=== PATIENT | female | born 1980 | race Caucasian/White ===

== ENCOUNTER 2017-12-03 13:51 | Emergency (ER) | payer MEDICAID ==
[~2017-12-03] VITALS: Ht 165.1 cm; Wt 72.1 kg
[2017-12-03 13:55] VITALS: BP 116/88
--- NOTE | 2017-12-03 14:30 | NUR ---
PATIENT PRESENTS TO ED WITH C/O LEFT FLANK PAIN W/NAUSEA,VOMITING, WEAKNESS, SINCE TUESDAY . SKIN IS PINK/WARM/DRY; AAOX4 WITH EVEN AND STEADY GAIT; LUNGS CLEAR BL; HR EVEN AND REGULAR; PT DENIES ANY FEVER, CP, SOB, OR COUGH AT THIS TIME; PATIENT STATES PAIN OF 10/10 AT THIS TIME;PATIENT POSITIONED FOR COMFORT; HOB ELEVATED; BEDRAILS UP X2; BED DOWN.ALL MONITORS IN PLACED; ER MD MADE AWARE OF PT STATUS.
--- NOTE | 2017-12-03 14:35 | NUR ---
DR LOPEZ AT BEDSIDE EVALUATING PT.
[2017-12-03] MEDS ORDERED: ONDANSETRON 4 MG ODT PO ONE (14:40)
[2017-12-03] MEDS ORDERED: KETOROLAC 60 MG/2 ML VIAL IM ONE (14:40)
[2017-12-03 15:18] VITALS: BP 116/88
--- NOTE | 2017-12-03 15:18 | NUR ---
Patient discharged with v/s stable. Written and verbal after care instructions given and explained. Patient alert, oriented and verbalized understanding of instructions. Ambulatory with steady gait. All questions addressed prior to discharge. ID band removed. Patient advised to follow up with PMD. Rx of motrin and zofran given. Patient educated on indication of medication including possible reaction and side effects. Opportunity to ask questions provided and answered.
== END 2017-12-03 15:18 | disposition home or self-care (01) ==
LOC: MED 13:51
DX: R10.12 Left upper quadrant pain (principal); R51 Headache; R11.2 Nausea with vomiting, unspecified; Z90.49 Acquired absence of other specified parts of digestive tract
CPT/HCPCS: 81002; 81025; 96372; 99283; J1885; S0119

== ENCOUNTER 2017-12-10 14:23 | Inpatient (IN) | payer MEDICAID ==
[~2017-12-10] VITALS: Ht 170.2 cm; Wt 69.6 kg
[2017-12-10 14:33] VITALS: BP 129/79
--- NOTE | 2017-12-10 14:33 | NUR ---
Pt w/c assisted to bed 3.
--- NOTE | 2017-12-10 14:36 | NUR ---
PATIENT PRESENTS TO ED WITH C.O ABD PAIN W/N/V/D X 1 WEEK . PT STATES SHE FEELS DIZZY TOO;. DENIES N/V/D; SKIN IS PINK/WARM/DRY; AAOX4 WITH EVEN AND STEADY GAIT; LUNGS CLEAR BL; HR EVEN AND REGULAR; PT DENIES ANY FEVER, CP, SOB, OR COUGH AT THIS TIME; PATIENT STATES PAIN OF 9/10 AT THIS TIME; PATIENT POSITIONED FOR COMFORT; HOB ELEVATED; BEDRAILS UP X2; BED DOWN. ER MD MADE AWARE OF PT STATUS.
--- NOTE | 2017-12-10 15:34 | NUR ---
PT VOMITTED;ER MD NOTIFIED;AWAITING NEW ORDER;
[2017-12-10] MEDS ORDERED: ONDANSETRON 4 MG/2 ML VIAL IVP ONE (15:45)
[2017-12-10] MEDS ORDERED: NACL 0.9% 1,000 ML IV ONE (15:45)
[2017-12-10 16:09] LABS: BASOPHILS # (AUTO) 0.6 K/uL (0.00-0.22); EOSINOPHILS # (AUTO) 0.1 K/uL (0-0.4); EOSINOPHILS % (AUTO) 0.4 % (0.0-4.0); HEMATOCRIT 40.1 % (36-48); HEMOGLOBIN 13.4 g/dL (12.0-16.0); LYMPHOCYTES # (AUTO) 1.2 K/uL (2.5-16.5); LYMPHOCYTES % (AUTO) 8.2 % (20.5-51.1); MEAN CORPUSCULAR HEMOGLOBIN 28 pg (27-31); MEAN CORPUSCULAR HGB CONC 33 g/dL (33-37); MEAN CORPUSCULAR VOLUME 83 fL (80-94); MONOCYTES # (AUTO) 0.4 K/uL (0.8-1.0); MONOCYTES % (AUTO) 2.7 % (1.7-9.3); NEUTROPHILS # (AUTO) 12.8 K/uL (1.8-7.7); NEUTROPHILS % (AUTO) 84.7 % (42.2-75.2); PLATELET COUNT (AUTO) 312 K/uL (140-450); RED BLOOD CELL COUNT(AUTO) 4.85 MIL/uL (4.20-5.40); RED CELL DISTRIBUTION WIDTH 12.4 % (11.6-13.7); WHITE BLOOD COUNT (AUTO) 15.1 K/uL (4.8-10.8)
[2017-12-10 16:13] LABS: APPEARANCE,URINE CLEAR (CLEAR); BILIRUBIN,URINE NEGATIVE (NEGATIVE); BLOOD, URINE NEGATIVE (NEGATIVE); COLOR,URINE YELLOW (YELLOW); LEUKOCYTE ESTERASE ,URINE NEGATIVE (NEGATIVE); NITRITE, URINE NEGATIVE (NEGATIVE); PH,URINE 7.5 (5.0-9.0); UGLUCOSE NEGATIVE (NEGATIVE)
[2017-12-10 16:21] LABS: ANION GAP 12.1 (8-16); CARBON DIOXIDE 29.2 mmol/L (21-32); CREATININE 0.7 mg/dL (0.6-1.3); POTASSIUM 4.3 mmol/L (3.5-5.1)
[2017-12-10 16:27] LABS: ALBUMIN 3.5 g/dL (3.4-5.0); TOTAL BILIRUBIN 0.2 mg/dL (0.0-1.0)
--- NOTE | 2017-12-10 16:59 | NUR ---
PT RESTING ON BED;NAD;WILL CONTINUE TO MONITOR PT,.
--- NOTE | 2017-12-10 17:43 | NUR ---
P RESTING ON BED;VERBALIZES SLIGHT RELIEF FROM DIZZINESS;WILL CONTINUE TO MONITOR PT.
[2017-12-10 19:00] LABS: BARBITURATE, URINE POS. ng/ml (NEG <=200); BENZODIAZEPINE, URINE NEG. ng/mL (NEG <=200); CANNABINOID, URINE NEG. ng/mL (NEG <=50); COCAINE, URINE NEG. ng/mL (NEG <=300); OPIATE, URINE NEG. ng/mL (NEG <=2000); PHENCYCLIDINE SCREEN,URINE NEG. ng/mL (NEG <=25)
--- NOTE | 2017-12-10 19:26 | NUR ---
Pt report given to ROMY COPPOLA. Transfer of care at this time.
--- NOTE | 2017-12-10 19:28 | NUR ---
PT RESTING IN BED, ON MONITOR Bobby any more nausea or pain. will cont to monitor.
[2017-12-10] MEDS ORDERED: FAMOTIDINE 20 MG/2 ML VIAL IVP ONE (20:35)
--- NOTE | 2017-12-10 20:47 | NUR ---
admiting resident at bedside, evaluating pt.
[2017-12-10] MEDS: NACL 0.9% 1,000 ML IV SCH (20:52)
[2017-12-10] MEDS ORDERED: HYDROcodone/APAP 5/325 MG 1 TAB TAB PO PRN (20:55)
[2017-12-10] MEDS ORDERED: ACETAMINOPHEN 325 MG TAB PO PRN (20:55)
[2017-12-10] MEDS ORDERED: ONDANSETRON 4 MG/2 ML VIAL IVP PRN (20:55)
[2017-12-10] MEDS ORDERED: OMEP20TC12 PO (21:01)
--- NOTE | 2017-12-10 21:04 | NUR ---
Shayy vallecillo in [facility] - 12/10/17 at 2145 by JANET PT TRASFERED TO TELEMETRY ROOM 124B, ACCOMPANIED BY RN AND EMT.
--- NOTE | 2017-12-10 21:14 | NUR ---
Shayy vallecillo in [facility] - 12/10/17 at 2145 by JANET REPORT GIVEN TO RMOY MARTINES AT BEDSIDE.
--- NOTE | 2017-12-10 21:24 | NUR ---
PT TRASNFERRED TO TELEMETRY, ROOM 106A, ACCOMPANIED BY RN AND EMT.
[2017-12-10 21:26] LABS: CHOL/HDL RATIO 4.8 (1-4.5)
--- NOTE | 2017-12-10 21:26 | NUR ---
REPORT GIVEN TO ROMY BLEVINS AT BEDSIDE.
[2017-12-10] MEDS ORDERED: MECLIZINE 25 MG TAB PO PRN (21:50)
[2017-12-10 21:55] LABS: FREE T4 (FREE THYROXINE) 1.05 ng/dL (0.76-1.46); THYROID STIMULATING HORMONE 0.74 uIU/mL (0.34-3.74)
--- NOTE | 2017-12-10 22:20 | NUR ---
RECEIVED PT. AWAKE AND ALERT. AMBULATED FROM OUTSIDE OF ROOM TO HER BED ASSIGNED. INDEPENDENT. ROM X 4. CLEAR SPEECH. ABLE TO SPEAK TAMAZIGHT AND UKRAINIAN. DX. OF NAUSEA AND VOMITING. STATED THAT SHE VOMITED ONLY THIS MORNING X 1 BUT BEEN LIKE THIS SINCE 3 DAYS AGO. RAPID RESPONSE USE EXPLAINED. CARE PLANS FOR THE NIGHT DISCUSSED WITH HER. ACCOMPANIED BY A FEMALE FRIEND.CALL LIGHT AT BEDSIDE AND EXPLAINED HOW TO USE IT. " I KNOW, I WAS HEAR RECENTLY." SKIN INTACT. IVF TO RAC#20 WITH NS AT 100 ML/H.
[2017-12-10 22:31] VITALS: BP 119/56
--- NOTE | 2017-12-10 22:46 | NUR ---
PT. WHEELED OUT OF UNIT FOR CT SCAN HEAD WITHOUT CONTRAST ORDERED. AWAKE AND ALERT. NO COMPLAINTS OF ANY PAIN DONE. TELEMETRY MONITORING. EKG TAKEN. NSR.
--- NOTE | 2017-12-10 23:37 | NUR ---
RESULT OF CT SCAN HEAD WITHOUT CONTRAST RELAYED TO RESIDENT MD ON DUTY LALIT. NO FURTHER ORDERS GIVEN.
[2017-12-11] VITALS: BP 110/60
--- NOTE | 2017-12-11 00:35 | NUR ---
PT. SLEEPING AT THIS TIME. NO COMPLAINTS DONE. ABLE TO VERBALIZE SIMPLE NEEDS.
--- NOTE | 2017-12-11 03:14 | NUR ---
SLEEPING WELL. NO COMPLAINTS OF VOMITING DONE OR PAIN SINCE START OF SHIFT. CALL LIGHT WITH IN REACH. TELEMETRY MONITORING.
[2017-12-11 03:44] VITALS: BP 90/52
[2017-12-11] MEDS ORDERED: AMOXIL/CLAVULANATE 500/125 MG 1 TAB PO SCH ×2 (05:35→08:00)
[2017-12-11 06:28] LABS: BASOPHILS # (AUTO) 0.2 K/uL (0.00-0.22); BASOPHILS % (AUTO) 3.8 % (0.0-2.0); EOSINOPHILS # (AUTO) 0.2 K/uL (0-0.4); EOSINOPHILS % (AUTO) 2.8 % (0.0-4.0); HEMATOCRIT 35.9 % (36-48); HEMOGLOBIN 12.1 g/dL (12.0-16.0); LYMPHOCYTES # (AUTO) 2.3 K/uL (2.5-16.5); LYMPHOCYTES % (AUTO) 34.5 % (20.5-51.1); MEAN CORPUSCULAR HEMOGLOBIN 28 pg (27-31); MEAN CORPUSCULAR HGB CONC 34 g/dL (33-37); MEAN CORPUSCULAR VOLUME 83 fL (80-94); MONOCYTES # (AUTO) 0.8 K/uL (0.8-1.0); MONOCYTES % (AUTO) 12.2 % (1.7-9.3); NEUTROPHILS # (AUTO) 3.1 K/uL (1.8-7.7); NEUTROPHILS % (AUTO) 46.7 % (42.2-75.2); PLATELET COUNT (AUTO) 289 K/uL (140-450); RED BLOOD CELL COUNT(AUTO) 4.32 MIL/uL (4.20-5.40); RED CELL DISTRIBUTION WIDTH 12.4 % (11.6-13.7); WHITE BLOOD COUNT (AUTO) 6.6 K/uL (4.8-10.8)
[2017-12-11 06:36] LABS: MAGNESIUM 2.1 mg/dL (1.8-2.4); PHOSPHORUS 3.6 mg/dL (2.5-4.9)
[2017-12-11 06:39] LABS: ANION GAP 9.7 (8-16); CARBON DIOXIDE 28.9 mmol/L (21-32); CREATININE 0.7 mg/dL (0.6-1.3); POTASSIUM 4.6 mmol/L (3.5-5.1)
[2017-12-11] MEDS: NACL 0.9% 1,000 ML IV SCH (06:39)
--- NOTE | 2017-12-11 06:40 | NUR ---
STILL SLEEPING. WAKES UP EASILY WHEN CALLED BY NAME. NO PAIN COMPLAINTS DONE THIS SHIFT. NO N/V AND VOMITING EPISODES .TELEMETRY MONITORING.
--- NOTE | 2017-12-11 07:20 | NUR ---
RECEIVED REPORT FROM THE ELECTRIC MULE DRIVER RN. PATIENT IS AAOX4. NO SINGS AND SYMPTOMS OF RESPIRATORY DISTRESS. PATIENT HAS IV ON LEFT FOREARM INFUSING NS AT 100ML. DENIES ANY NAUSEA AND VOMITING AT THIS TIME. DISCUSSED PLAN OF CARE WITH PATIENT AND SHE VERBALIZED UNDERSTANDING. BED IN LOWEST POSITION, SIDERAILS UP X2, CALL LIGHT WITHIN REACH. TELEMONITOR ON. WILL CONTINUE TO MONITOR.
[2017-12-11] MEDS ORDERED: BISACODYL 10 MG SUPP RC SCH (07:46)
[2017-12-11] MEDS ORDERED: BISACODYL 5 MG TABEC PO SCH (07:48)
[2017-12-11 08:00] VITALS: BP 102/55
[2017-12-11] MEDS: AMOXIL/CLAVULANATE 875/125 MG 1 TAB PO SCH ×3 (08:00→20:50)
[2017-12-11] MEDS: PANTOPRAZOLE 40 MG TABEC PO SCH (08:00)
--- NOTE | 2017-12-11 08:10 | NUR ---
SPOKE WITH DR. Maegan TINSLEY OVER THE PHONE AND NOTIFIED WITH THE CONSULT. STATED HE WILL COME TO SEE PT LATER TODAY. MERLIN STANTON IN CHARGE MADE AWARE.
[2017-12-11] MEDS: LACTOBACILLUS RHAMNOSUS GG 1 EACH CAP PO SCH (09:00)
[2017-12-11] MEDS: DOCUSATE 100 MG/10 ML UDC GT SCH (09:00)
[2017-12-11] MEDS: guaiFENesin 600 MG TABER PO SCH ×2 (09:00→20:50)
[2017-12-11] MEDS ORDERED: SUCRALFATE 1 GM TAB PO SCH (09:00)
[2017-12-11] MEDS: FLUTICASONE NASAL 50 MCG/ACTUATION 16 GM BTL NS SCH (09:00)
[2017-12-11 12:00] VITALS: BP 105/61
[2017-12-11 16:00] VITALS: BP 103/59
--- NOTE | 2017-12-11 16:30 | NUR ---
DR Maegan TINSLEY HERE AND SPOKE WITH PATIENT. HE EXPLAINED TO THE PATIENT THAT HE WILL DO A EGD ON HER TOMORROW. PATIENT HAS NO QUESTIONS AT THIS TIME.
--- NOTE | 2017-12-11 18:39 | NUR ---
USED THE FISCAL CLERK PHONE TO OBTAIN CONSENT FOR EGD FOR TOMORROW. ALL QUESTIONS HAVE BEEN ANSWERED.
--- NOTE | 2017-12-11 19:20 | NUR ---
ENDORSED PATIENT TO SOCIAL PSYCHOLOGIST NURSE FOR CONTINUITY OF CARE. PATIENT IN STABLE CONDITION.
--- NOTE | 2017-12-11 19:31 | NUR ---
RECEIVED REPORT FROM DAY SHIFT RN, PATIENT RESTING IN BED, AWAKE ALERT ORIENTED X4, NO S/S OF DISTRESS NOTED, RESPIRATION EVEN AND UNLABORED, IV PATENT AND INTACT, FLUSHED WITH 10ML NS. PLAN OF CARE DISCUSSED, PATIENT VERBALIZED UNDERSTANDING, CALL LIGHT WITHIN REACH, SAFETY MEASURE ENSURED, WILL CONTINUE TO MONITOR.
[2017-12-11 20:00] VITALS: BP 98/56
--- NOTE | 2017-12-11 20:52 | NUR ---
DUE MEDICATION GIVEN, PATIENT TOLERATED WELL. NO S/S OF DISTRESS NOTED, RESPIRATION EVEN AND UNLABORED, CALL LIGHT WITHIN REACH, SAFETY MEASURE ENSURED, WILL CONTINUE TO MONITOR.
[2017-12-11] MEDS ORDERED: AMITRIPTYLINE 10 MG TAB PO SCH (21:00)
--- NOTE | 2017-12-11 22:15 | NUR ---
PATIENT IS WATCHING TV, NO S/S OF DISTRESS NOTED, RESPIRATION EVEN AND UNLABORED, CALL LIGHT WITHIN REACH, SAFETY MEASURE ENSURED, WILL CONTINUE TO MONITOR.
[2017-12-12] VITALS: BP 98/57
--- NOTE | 2017-12-12 00:49 | NUR ---
VITAL SIGNS STABLE, NO S/S OF DISTRESS NOTED, RESPIRATION EVEN AND UNLABORED, CALL LIGHT WITHIN REACH, SAFETY MEASURE ENSURED, WILL CONTINUE TO MONITOR.
--- NOTE | 2017-12-12 02:20 | NUR ---
NO CHANGE IN CONDITION, PATIENT IS SLEEPING, NO S/S OF DISTRESS NOTED, RESPIRATION EVEN AND UNLABORED, CALL LIGHT WITHIN REACH, SAFETY MEASURE ENSURED, WILL CONTINUE TO MONITOR.
[2017-12-12 03:47] VITALS: BP 93/52
--- NOTE | 2017-12-12 04:22 | NUR ---
VITAL SIGNS STABLE, NO S/S OF DISTRESS NOTED, RESPIRATION EVEN AND UNLABORED, CALL LIGHT WITHIN REACH, SAFETY MEASURE ENSURED, WILL CONTINUE TO MONITOR.
[2017-12-12 06:13] LABS: BASOPHILS # (AUTO) 0.3 K/uL (0.00-0.22); BASOPHILS % (AUTO) 3.5 % (0.0-2.0); EOSINOPHILS # (AUTO) 0.2 K/uL (0-0.4); EOSINOPHILS % (AUTO) 2.9 % (0.0-4.0); HEMATOCRIT 36.4 % (36-48); LYMPHOCYTES # (AUTO) 2.1 K/uL (2.5-16.5); LYMPHOCYTES % (AUTO) 27.7 % (20.5-51.1); MEAN CORPUSCULAR HEMOGLOBIN 28 pg (27-31); MEAN CORPUSCULAR HGB CONC 33 g/dL (33-37); MEAN CORPUSCULAR VOLUME 84 fL (80-94); MONOCYTES # (AUTO) 0.9 K/uL (0.8-1.0); MONOCYTES % (AUTO) 11.6 % (1.7-9.3); NEUTROPHILS # (AUTO) 4.1 K/uL (1.8-7.7); NEUTROPHILS % (AUTO) 54.3 % (42.2-75.2); PLATELET COUNT (AUTO) 295 K/uL (140-450); RED BLOOD CELL COUNT(AUTO) 4.34 MIL/uL (4.20-5.40); RED CELL DISTRIBUTION WIDTH 12.4 % (11.6-13.7); WHITE BLOOD COUNT (AUTO) 7.6 K/uL (4.8-10.8)
[2017-12-12 06:45] LABS: ANION GAP 10.4 (8-16); CREATININE 0.7 mg/dL (0.6-1.3); POTASSIUM 4.4 mmol/L (3.5-5.1)
[2017-12-12 07:10] LABS: MAGNESIUM 2.1 mg/dL (1.8-2.4)
--- NOTE | 2017-12-12 07:35 | NUR ---
ENDORSED PLAN OF CARE TO DAY SHIFT RN, PATIENT IS IN STABLE CONDITION, NO S/S OF DISTRESS.
--- NOTE | 2017-12-12 07:40 | NUR ---
RECEIVED PATIENT REPORT AT BEDSIDE FROM NIGHT NURSE. PATIENT IS AAOX4 AND SHOWS NO S/S OF ACUTE DISTRESS ON ROOM AIR, DENIES PAIN. ON TELE MONITOR. IV NOTED ON THE LEFT AC SL. SKIN INTACT. PATIENT WAS EXPLAINED POC FOR TODAY, HOSPITAL ENVIRONMENT AND USE OF CALL LIGHT FOR ASSISTANCE, PATIENT VERBALIZED UNDERSTANDING. ALL NEEDS MET AT THIS TIME, BED IN LOW POSITION WITH CALL LIGHT WITHIN REACH.
[2017-12-12] MEDS: PANTOPRAZOLE 40 MG TABEC PO SCH ×2 (07:51→08:39)
[2017-12-12 08:08] VITALS: BP 99/50
[2017-12-12] MEDS: AMOXIL/CLAVULANATE 875/125 MG 1 TAB PO SCH (08:37)
[2017-12-12] MEDS: SENNA 8.6 MG TAB PO SCH ×2 (08:38→14:23)
[2017-12-12] MEDS: LACTOBACILLUS RHAMNOSUS GG 1 EACH CAP PO SCH (08:38)
[2017-12-12] MEDS: DOCUSATE 100 MG/10 ML UDC GT SCH (08:38)
[2017-12-12] MEDS: guaiFENesin 600 MG TABER PO SCH (08:39)
[2017-12-12] MEDS: FLUTICASONE NASAL 50 MCG/ACTUATION 16 GM BTL NS SCH (08:40)
--- NOTE | 2017-12-12 08:42 | NUR ---
ADMINISTERED SCHEDULED MEDICATIONS. PATIENT SWALLOWED WITH NO DIFFICULTY, ALL NEEDS MET AT THIS TIME. BED IN LOW POSITION WITH CALL LIGHT WITHIN REACH.
--- NOTE | 2017-12-12 08:55 | NUR ---
PATIENT HAS BEEN SCREENED AND CATEGORIZED MODERATE NUTRITION RISK. PATIENT WILL BE SEEN WITHIN 3-5 DAYS OF ADMISSION. 12/12/17-12/14/[address]
--- NOTE | 2017-12-12 09:46 | NUR ---
CM NOTE PER JAE OF [facility] DEPT PH# [phone], NO ASSIGNED CORDAGE SALES REPRESENTATIVE YET BECAUSE THEY'RE STILL UPDATING THEIR SYSTEM BUT TO SEND REVIEWS TO DEPT [phone]. INITIAL REVIEW FAXED TO [facility] [phone] PH# [phone] AND TO [facility] [phone] PH# [phone].
[2017-12-12] MEDS ORDERED: fentaNYL 0.05 MG/ML VIAL ONE (10:11)
[2017-12-12] MEDS ORDERED: MIDAZOLAM 2 MG/2 ML VIAL ONE ×2 (10:11)
[2017-12-12] MEDS ORDERED: diphenhydrAMINE 50 MG/ML VIAL ONE (10:11)
--- NOTE | 2017-12-12 10:42 | NUR ---
PATIENT LEFT TO OR FOR PROCEDURE IN STABLE CONDITION.
[2017-12-12] MEDS: MIDAZOLAM 2 MG/2 ML VIAL IVP ONE ×2 (11:09→11:59)
[2017-12-12] MEDS: fentaNYL 0.05 MG/ML VIAL IVP ONE ×2 (11:10→11:59)
--- NOTE | 2017-12-12 11:40 | NUR ---
PATIENT BACK ON UNIT, PATIENT IN STABLE CONDITION.
[2017-12-12 12:00] VITALS: BP 99/53
--- NOTE | 2017-12-12 12:15 | NUR ---
PATIENT REQUESTED TO HAVE LUNCH BEFORE SCHEDULED MEDICATIONS, [facility] WAS CALLED AND LEFT MESSAGE TO BRING UP LATE LUNCH, DR CLEMENTE NOTIFIED TO CHANGE DIET FOR LUNCH TIME.
--- NOTE | 2017-12-12 13:45 | NUR ---
PATIENT STILL HAS NOT HAD LUNCH, [facility] CALLED AGAIN TO BRING UP LATE LUNCH, ORDERED TURKEY SANDWICH. PATIENT REQUESTED TO HAVE SCHEDULED MEDICATIONS WITH LUNCH.
--- NOTE | 2017-12-12 14:25 | NUR ---
ADMINISTERED SCHEDULED MEDICATIONS. PATIENT SWALLOWED WITH NO DIFFICULTY, ALL NEEDS MET AT THIS TIME. BED IN LOW POSITION WITH CALL LIGHT WITHIN REACH.
[2017-12-12] MEDS ORDERED: OMEP20TC12 PO (15:10)
--- NOTE | 2017-12-12 15:11 | NUR ---
DR LEPE NOTIFIED OF PATIENT TOLERATING DIET WELL, PATIENT DENIES N/V. ALL NEEDS MET AT THIS TIME.
[2017-12-12] MEDS ORDERED: LACT1.4C PO ×2 (15:12→15:27)
[2017-12-12] MEDS ORDERED: RANI150C PO (15:25)
[2017-12-12] MEDS ORDERED: AMOX1TAB8 PO (15:27)
--- NOTE | 2017-12-12 15:28 | NUR ---
CM NOTE CALLED [facility]# [phone] TO FOLLOW UP ON WHO THE CONVEYOR SYSTEM DISPATCHER ASSIGNED TO THE PATIENT IS. PER RYLEE OF [facility], PATIENT'S NAME DOESN'T SHOW UP IN THEIR SYSTEM YET SO THEY HAVE NOT ASSIGNED ANY CONVEYOR SYSTEM DISPATCHER AT THIS TIME AND THAT IT TAKES ABOUT 24 HOURS FOR THEIR SYSTEM BE UPDATED.
[2017-12-12 15:54] VITALS: BP 107/64
[2017-12-12] MEDS ORDERED: ATOR20TA PO (16:26)
[2017-12-12] MEDS ORDERED: DOCU-299 PO (16:49)
--- NOTE | 2017-12-12 17:00 | NUR ---
PATIENT HAS BEEN DISCHARGED, ALL DISCHARGE INSTRUCTIONS GIVEN, ALL PAPERWORK SIGNED, ALL QUESTIONS ANSWERED, PATIENT VERBALIZED UNDERSTANDING. ALL BELONGINGS IN PATIENT'S POSSESSION. IV DISCONTINUED WITH CANNULA INTACT. WRISTBANDS AND TELE BOX REMOVED. PATIENT PREFERRED TO AMB OFF UNIT WITH FRIEND. PATIENT AMB WITH STEADY GAIT, PATIENT LEFT UNIT IN STABLE CONDITION.
== END 2017-12-12 17:00 | disposition home or self-care (01) | DRG 241 ==
LOC: MED 14:23 → MTU 20:59
PROVIDERS: ADMIT Student in an Organized Health Care Education/Training Program; ATTEND Student in an Organized Health Care Education/Training Program
PROC: 0DB68ZX Excision of Stomach, Via Natural or Artificial Opening Endoscopic, Diagnostic (ICD-10-PCS; principal; 2017-12-10)
DX: K29.70 Gastritis, unspecified, without bleeding (principal); G90.9 Disorder of the autonomic nervous system, unspecified; K76.0 Fatty (change of) liver, not elsewhere classified; E86.0 Dehydration; K59.09 Other constipation; K58.1 Irritable bowel syndrome with constipation; E78.5 Hyperlipidemia, unspecified; F41.9 Anxiety disorder, unspecified; Z90.49 Acquired absence of other specified parts of digestive tract; D72.829 Elevated white blood cell count, unspecified; R16.0 Hepatomegaly, not elsewhere classified; K21.9 Gastro-esophageal reflux disease without esophagitis; M79.7 Fibromyalgia; J01.40 Acute pansinusitis, unspecified
CPT/HCPCS: 36415; 70450; 71045; 80048; 80053; 80305; 81003; 81025; 82150; 83036; 83690; 83735; 83880; 84100; 84439; 84443; 84479; 84484; 84702; 85025; 85610; 85730; 86677; 87081; 93005; 93880; 96361; 96374; 96375; 99285; J1200; J2250; J2405; J3010; J3490; J7030; Q0092

== ENCOUNTER 2019-07-01 14:16 | Emergency (ER) | payer MEDICAID ==
[~2019-07-01] VITALS: Ht 167.6 cm; Wt 70.8 kg
[~2019-07-01 14:16] MED LIST: AMOX1TAB8 PO; ATOR20TA PO; DOCU-299 PO; LACT1.4C PO; RANI150C PO
[2019-07-01 14:20] VITALS: BP 116/66
--- NOTE | 2019-07-01 14:20 | NUR ---
PT TAKEN TO BED 11 AND TRIAGED AT BEDSIDE.
--- NOTE | 2019-07-01 14:33 | NUR ---
Patient being evaluated by physician at bedside.
--- NOTE | 2019-07-01 14:33 | NUR ---
BIB C/O DIZZINESS AND NAUSEA X1 WEEK AND PRODUCTIVE COUGH WITH GREENISH PHLEGM AND FRONTAL SINSUS TENDERNESS FOR 2 WEEKS. CURRENTLY TAKING DOXYCYCLINE. DENIES VOMITING, DIARRHEA, FEVER, CHEST PAIN, SOB, OR CONSTIPATION. PATIENT STATES PAIN OF 8/10 AT THIS TIME; VSS; PATIENT POSITIONED FOR COMFORT; HOB ELEVATED; BEDRAILS UP X1; BED DOWN. ER MD MADE AWARE OF PT STATUS.
[2019-07-01] MEDS ORDERED: DOXY100C9 PO (14:38)
[2019-07-01] MEDS ORDERED: NACL 0.9% 1,000 ML IV ONE (14:40)
[2019-07-01] MEDS ORDERED: MECLIZINE 25 MG TAB PO ONE (14:40)
[2019-07-01] MEDS ORDERED: KETOROLAC 30 MG/ML VIAL IVP ONE (14:40)
--- NOTE | 2019-07-01 14:50 | NUR ---
BLOOD SAMPLES OBTAINED AND WALKED TO THE LAB.
[2019-07-01 15:03] LABS: BASOPHILS % (AUTO) 0.4 % (0.0-2.0); EOSINOPHILS # (AUTO) 0.1 K/uL (0-0.4); EOSINOPHILS % (AUTO) 1.8 % (0.0-4.0); HEMATOCRIT 40.9 % (36-48); HEMOGLOBIN 13.5 g/dL (12.0-16.0); LYMPHOCYTES # (AUTO) 1.2 K/uL (2.5-16.5); MEAN CORPUSCULAR HEMOGLOBIN 29 pg (27-31); MEAN CORPUSCULAR HGB CONC 33 g/dL (33-37); MEAN CORPUSCULAR VOLUME 86.6 fL (80-94); MONOCYTES # (AUTO) 0.5 K/uL (0.8-1.0); MONOCYTES % (AUTO) 6.8 % (1.7-9.3); NEUTROPHILS # (AUTO) 5.8 K/uL (1.8-7.7); PLATELET COUNT (AUTO) 262 K/uL (140-450); RED BLOOD CELL COUNT(AUTO) 4.72 MIL/uL (4.20-5.40); RED CELL DISTRIBUTION WIDTH 13.1 % (11.6-13.7); WHITE BLOOD COUNT (AUTO) 7.8 K/uL (4.8-10.8)
[2019-07-01 15:22] LABS: ANION GAP 12.5 (8-16); CARBON DIOXIDE 25.1 mmol/L (21-32); CREATININE 0.7 mg/dL (0.6-1.3); POTASSIUM 3.6 mmol/L (3.5-5.1)
[2019-07-01 15:51] LABS: ALBUMIN 3.4 g/dL (3.4-5.0)
[2019-07-01 15:52] LABS: TOTAL BILIRUBIN 0.3 mg/dL (0.0-1.0)
[2019-07-01] MEDS ORDERED: PANTOPRAZOLE 40 MG INJ VIAL IVP ONE (15:55)
--- NOTE | 2019-07-01 16:03 | NUR ---
PT IS RESTING IN BED. VSS. IS AT BEDSIDE.
[2019-07-01 16:38] VITALS: BP 110/57
--- NOTE | 2019-07-01 16:38 | NUR ---
Patient discharged with v/s stable. Written and verbal after care instructions given and explained. Patient alert, oriented and verbalized understanding of instructions. Ambulatory with steady gait. All questions addressed prior to discharge. ID band removed. Patient advised to follow up with PMD. Rx of Meclizine Hydrochloride, Flonase, Prednisone, and Motrin given. Patient educated on indication of medication including possible reaction and side effects. Opportunity to ask questions provided and answered.
== END 2019-07-01 16:38 | disposition home or self-care (01) ==
LOC: MED 14:16
DX: R42 Dizziness and giddiness (principal); J30.9 Allergic rhinitis, unspecified; R11.0 Nausea; R05 Cough; Z79.899 Other long term (current) drug therapy
CPT/HCPCS: 36415; 71045; 80053; 81002; 81025; 85025; 96361; 96374; 99284; J1885; J7030; J8597; Q0092; C9113

== ENCOUNTER 2019-12-23 18:18 | Inpatient (IN) | payer MEDICAID ==
[~2019-12-23] VITALS: Ht 165.1 cm; Wt 68.5 kg
[~2019-12-23 18:18] MED LIST changes: -AMOX1TAB8 PO; -ATOR20TA PO; +DESFLURANE 240 ML BTL INH ONE; -DOCU-299 PO; +DOXY100C9 PO; +KETOROLAC 30 MG/ML VIAL ONE; -LACT1.4C PO; +PROPOFOL 200 MG/20 ML VIAL IV ONE; -RANI150C PO; +ROCURONIUM 50 MG/5 ML VIAL IV ONE; +SUCCINYLCHOLINE CHLORIDE 200 MG/10 ML VIAL IVP ONE
--- NOTE | 2019-12-23 18:26 | NUR ---
PATIENT WHEELCHAIR ASSISTED TO BED 9.
[2019-12-23 18:30] VITALS: BP 119/70
--- NOTE | 2019-12-23 18:43 | NUR ---
COVERING PRIMARY RN FOR LUNCH RELIEF --- RECEVIED A 39/F FROM TRIAGE WITH HEAVY VAGINAL BLEEDING. PT REPORTS THAT SHE WAS TAKING MISOPROSTOL AND BEGAN HEAVILY BLEEDING. BLEEDING APPEARS TO BE CONTROLLED AT THIS TIME. PT IS HEMODYNAMICALLY STABLE AT THIS TIME. IN BED FOR MSE.
[2019-12-23 19:06] LABS: BASOPHILS # (AUTO) 0.1 K/uL (0.00-0.22); BASOPHILS % (AUTO) 1.1 % (0.0-2.0); EOSINOPHILS # (AUTO) 0.3 K/uL (0-0.4); EOSINOPHILS % (AUTO) 2.5 % (0.0-4.0); HEMATOCRIT 37.9 % (36-48); HEMOGLOBIN 12.7 g/dL (12.0-16.0); LYMPHOCYTES # (AUTO) 2.9 K/uL (2.5-16.5); MEAN CORPUSCULAR HEMOGLOBIN 29 pg (27-31); MEAN CORPUSCULAR HGB CONC 34 g/dL (33-37); MEAN CORPUSCULAR VOLUME 85.8 fL (80-94); MONOCYTES % (AUTO) 9.2 % (1.7-9.3); NEUTROPHILS # (AUTO) 6.9 K/uL (1.8-7.7); NEUTROPHILS % (AUTO) 61.2 % (42.2-75.2); PLATELET COUNT (AUTO) 292 K/uL (140-450); RED BLOOD CELL COUNT(AUTO) 4.42 MIL/uL (4.20-5.40); WHITE BLOOD COUNT (AUTO) 11.3 K/uL (4.8-10.8)
--- NOTE | 2019-12-23 19:09 | NUR ---
REPORT TO ROMY AMADOR.
[2019-12-23 19:25] LABS: ANION GAP 12.7 (8-16); CARBON DIOXIDE 25.8 mmol/L (21-32); CREATININE 0.7 mg/dL (0.6-1.3); POTASSIUM 3.5 mmol/L (3.5-5.1)
[2019-12-23 19:30] LABS: ALBUMIN 3.3 g/dL (3.4-5.0); TOTAL BILIRUBIN 0.2 mg/dL (0.0-1.0)
[2019-12-23] MEDS ORDERED: NACL 0.9% 1,000 ML IV ONE ×3 (20:45→22:15)
--- NOTE | 2019-12-23 20:46 | NUR ---
NOTIFIED ERMD REGARDING DROP IN BLOOD PRESSURE: 91/47. VERBAL ORDERS OF 1 LITER BOLUS GIVEN.
[2019-12-23 20:56] LABS: APPEARANCE,URINE CLOUDY (CLEAR); BILIRUBIN,URINE NEGATIVE (NEGATIVE); BLOOD, URINE 3+ (NEGATIVE); COLOR,URINE RED (YELLOW); LEUKOCYTE ESTERASE ,URINE TRACE (NEGATIVE); NITRITE, URINE POSITIVE (NEGATIVE); UGLUCOSE NEGATIVE (NEGATIVE)
[2019-12-23] MEDS ORDERED: NACL 0.9% 2,000 ML IV ONE (21:15)
[2019-12-23 21:18] LABS: RBC,URINE TOO NUMEROUS TO COUN /HPF (0-5)
--- NOTE | 2019-12-23 21:18 | NUR ---
Dr. Duncan examining patient.
--- NOTE | 2019-12-23 21:20 | NUR ---
ANA PERFORMING D&C AT BEDSIDE
--- NOTE | 2019-12-23 21:25 | NUR ---
REPORT OF PT STATUS GIVEN TO MD PEREZ.
[2019-12-23 21:39] LABS: HEMATOCRIT 28.5 % (36-48); HEMOGLOBIN 9.5 g/dL (12.0-16.0)
--- NOTE | 2019-12-23 21:41 | NUR ---
INCREASE IN BP, REFER TO VITAL SIGNS
[2019-12-23] MEDS ORDERED: ONDANSETRON 4 MG/2 ML VIAL IM/IVP PRN ×2 (21:45→22:15)
[2019-12-23] MEDS ORDERED: MORPHINE SULFATE 2 MG/ML SYR IVP PRN ×2 (21:45→22:15)
[2019-12-23] MEDS ORDERED: DOCUSATE SODIUM 100 MG GELCAP PO PRN ×2 (21:45→22:15)
[2019-12-23] MEDS ORDERED: NACL 0.9% 1,000 ML IV SCH (21:45)
[2019-12-23] MEDS ORDERED: ACETAMINOPHEN 325 MG TAB PO PRN ×2 (21:45→22:15)
[2019-12-23] MEDS ORDERED: HYDROcodone/APAP 5/325 MG 1 TAB TAB PO PRN ×2 (21:45→22:15)
--- NOTE | 2019-12-23 22:00 | NUR ---
CONSENT FOR D&C SURGERY/ BLOOD TRANSFUSION SIGNED AT BEDSIDE. RESP EVEN AND UNLABORED. VSS. DR PEREZ AT BEDSIDE.
[2019-12-23] MEDS ORDERED: MIDAZOLAM 2 MG/2 ML VIAL ONE (22:01)
[2019-12-23] MEDS ORDERED: fentaNYL 0.05 MG/ML VIAL ONE (22:01)
--- NOTE | 2019-12-23 22:25 | NUR ---
Patient will be admitted to [facility]. Admited to TELE. Will go to room 105A. Belongings list completed.
[2019-12-23] MEDS ORDERED: HYDROmorphone 1 MG/ML AMP IVP PRN (22:50)
[2019-12-23] MEDS ORDERED: ONDANSETRON 4 MG/2 ML VIAL IVP PRN (22:50)
[2019-12-23 23:17] LABS: MAGNESIUM 1.9 mg/dL (1.8-2.4); PHOSPHORUS 4.7 mg/dL (2.5-4.9); THYROID STIMULATING HORMONE 0.91 uIU/mL (0.34-3.74)
[2019-12-23 23:18] LABS: PROTHROMBIN TIME 9.9 secs (10.8-13.4)
[2019-12-23 23:27] LABS: BARBITURATE, URINE NEG. ng/ml (NEG <=200); BENZODIAZEPINE, URINE NEG. ng/mL (NEG <=200); CANNABINOID, URINE NEG. ng/mL (NEG <=50); COCAINE, URINE NEG. ng/mL (NEG <=300); OPIATE, URINE NEG. ng/mL (NEG <=2000); PHENCYCLIDINE SCREEN,URINE NEG. ng/mL (NEG <=25)
--- NOTE | 2019-12-23 23:53 | NUR ---
ADMITTED 39 Y/O FEMALE FROM [facility]IA [facility]. S/P D & C. PATIENT IS SLEEPING. EASILY AROUSABLE TO VERBAL. DENIES PAIN. ABLE TO MAKE NEEDS KNOWN. WITH ON GOING IV FLUID TO LAC 18G. NO BLEEDING NOTED. RESPIRATION EVEN AND UNLABORED. NO SOB NOTED. NOTED IV HEPLOCK ON RAC 20G. SIGNIFICANT OTHER AT BEDSIDE AND PROVIDED INFORMATION. PLAN OF CARE WAS DISCUSSED. MRSA SCREEN DONE. VITAL SIGNS TAKEN AND RECORDED. ORIENTATION TO ROOM, STAFF AND CALL LIGHT. BED IS AT LOW POSITION. CALL LIGHT WITHIN REACH. WILL CONTINUE TO MONITOR.
[2019-12-24 00:16] VITALS: BP 91/39
--- NOTE | 2019-12-24 00:30 | NUR ---
PATIENT AGREED TO HAVE A BLOOD TRANSFUSION AND LET THE SIGNIFICANT OTHER SIGNED THE CONSENT.
[2019-12-24] MEDS: NACL 0.9% 1,000 ML IV SCH ×2 (00:56→08:15)
--- NOTE | 2019-12-24 02:16 | NUR ---
PATIENT IS SLEEPING. NOT IN ANY ACUTE DISTRESS. RESPIRATION EVEN AND UNLABORED. NO BLEEDING NOTED. WILL CONTINUE TO MONITOR.
[2019-12-24] MEDS ORDERED: PANTOPRAZOLE 40 MG TABEC PO SCH (03:00)
--- NOTE | 2019-12-24 03:05 | NUR ---
PATIENT VOMITED X1. SMALL AMOUNT. NO SOB NOTED. ADVISED TO MOVE SLOWLY. PRN ZOFRAN IVP GIVEN PER MD ORDER. WILL CONTINUE TO MONITOR. PATIENT C/O ABDOMINAL PAIN 07/10. SMALL AMOUNT OF BLEEDING NOTED ON HER PAD. REPOSITIONED. MORPHINE IVP GIVEN PER MD ORDER.
[2019-12-24 03:25] LABS: BASOPHILS # (AUTO) 0.1 K/uL (0.00-0.22); BASOPHILS % (AUTO) 1.2 % (0.0-2.0); EOSINOPHILS # (AUTO) 0.2 K/uL (0-0.4); EOSINOPHILS % (AUTO) 2.7 % (0.0-4.0); HEMATOCRIT 23.4 % (36-48); HEMOGLOBIN 8.1 g/dL (12.0-16.0); LYMPHOCYTES # (AUTO) 1.8 K/uL (2.5-16.5); LYMPHOCYTES % (AUTO) 24.9 % (20.5-51.1); MEAN CORPUSCULAR HEMOGLOBIN 29 pg (27-31); MEAN CORPUSCULAR HGB CONC 35 g/dL (33-37); MEAN CORPUSCULAR VOLUME 85.1 fL (80-94); MONOCYTES # (AUTO) 0.7 K/uL (0.8-1.0); MONOCYTES % (AUTO) 9.6 % (1.7-9.3); NEUTROPHILS # (AUTO) 4.5 K/uL (1.8-7.7); NEUTROPHILS % (AUTO) 61.6 % (42.2-75.2); PLATELET COUNT (AUTO) 189 K/uL (140-450); RED BLOOD CELL COUNT(AUTO) 2.75 MIL/uL (4.20-5.40); RED CELL DISTRIBUTION WIDTH 13.6 % (11.6-13.7); WHITE BLOOD COUNT (AUTO) 7.4 K/uL (4.8-10.8)
[2019-12-24 04:00] VITALS: BP 93/45
--- NOTE | 2019-12-24 04:12 | NUR ---
PATIENT STATES "I FEEL UNEASINESS ON MY STOMACH". PER PATIENT SHE SAID SHE USUALLY TAKES OMEPRAZOLE AT HOME. NOTIFIED MD. AND ORDERED PANTOPRAZOLE. NO SOB NOTED. NO C/O PAIN/DISCOMFORT. WILL CONTINUE TO MONITOR.
--- NOTE | 2019-12-24 06:02 | NUR ---
AWAITING FOR BLOOD.
--- NOTE | 2019-12-24 06:07 | NUR ---
PATIENT WENT TO THE BATHROOM. NOTED MINIMAL AMOUNT OF BLOOD TO HER PADS.
--- NOTE | 2019-12-24 06:30 | NUR ---
VITAL SIGNS TAKEN BEFORE TRANSFUSION 98.5, 82/36, 99%, 68, 17. NO SOB NOTED. MD WAS NOTIFIED. ORDERED TO GO AHEAD AND TRANSFUSE BLOOD.
[2019-12-24 06:31] LABS: ANION GAP 11.5 (8-16); CARBON DIOXIDE 24.4 mmol/L (21-32); CREATININE 0.5 mg/dL (0.6-1.3); POTASSIUM 3.9 mmol/L (3.5-5.1)
[2019-12-24] MEDS ORDERED: NACL 0.9% 1,000 ML IV ONE (06:35)
--- NOTE | 2019-12-24 06:45 | NUR ---
STARTED BLOOD TRANSFUSION. CHECKED BLOOD BY 2 RN. STAYED WITH THE PATIENT FOR 15 MINS AT THE START OF THE INFUSION. NO ADVERSE REACTION NOTED. PATIENT DIDN'T C/O ANYTHING.
--- NOTE | 2019-12-24 07:30 | NUR ---
ENDORSEMENT GIVEN AT BEDSIDE TO AM SHIFT RN FOR CONTINUITY OF CARE. PATIENT IS AWAKE. NO SOB NOTED.
--- NOTE | 2019-12-24 07:31 | NUR ---
RECEIVED BEDSIDE REPORT FROM NIGHTSHIFT NURSE. NO SIGNS OF DISTRESS NOTED. PT AWAKE RESTING IN BED. PLAN OF CARE REVIEWED WITH PATIENT. TELE MONITOR ATTACHED SAFETY MEASURES IN PLACE.
[2019-12-24 07:50] LABS: MAGNESIUM 1.7 mg/dL (1.8-2.4); PHOSPHORUS 3.9 mg/dL (2.5-4.9)
[2019-12-24 08:00] VITALS: BP 101/49
--- NOTE | 2019-12-24 08:33 | NUR ---
PATIENT HAS BEEN SCREENED AND CATEGORIZED LOW NUTRITION RISK. PATIENT WILL BE SEEN WITHIN 7 DAYS OF ADMISSION. 12/30/[address]
[2019-12-24] MEDS ORDERED: LACTOBACILLUS RHAMNOSUS GG 1 EACH CAP PO SCH ×2 (09:00)
--- NOTE | 2019-12-24 10:05 | NUR ---
1 UNIT PRBC COMPLETED, NO REACTION NOTED. WILL ADMINISTER NEXT UNIT PER MD ORDERS. WILL CONTINUE TO MONITOR .
--- NOTE | 2019-12-24 10:52 | NUR ---
DISCHARGE PLANNING: THIS IS A 39 Y/O FEMALE PATIENT FROM HOME, WHO CAME IN DUE TO VAGINAL BLEEDING. NO PAST MEDICAL HISTORY. INITIAL DIAGNOSIS OF INCOMPLETE , RETAINED PRODUCTS OF CONCEPTION. CURRENT LABS INCLUDE WBC 7.4, H/H 8.1/23.4, NA/K 143/3.9, BUN/CREA 9/0.5 AND MAG 1.7. URINE CULTURE AND MRSA NARES PENDING. OB GYNE CONSULT WITH DR. PEREZ IN PLACE. ON ROCEPHIN. 2 U PRBC ORDERED. 1 UNIT GIVEN. DC PLAN BACK TO HOME ONCE STABLE.
[2019-12-24 12:00] VITALS: BP 119/49
[2019-12-24 12:06] LABS: BASOPHILS % (AUTO) 0.5 % (0.0-2.0); EOSINOPHILS # (AUTO) 0.2 K/uL (0-0.4); HEMATOCRIT 27.1 % (36-48); HEMOGLOBIN 9.3 g/dL (12.0-16.0); LYMPHOCYTES # (AUTO) 1.8 K/uL (2.5-16.5); LYMPHOCYTES % (AUTO) 23.7 % (20.5-51.1); MEAN CORPUSCULAR HEMOGLOBIN 30 pg (27-31); MEAN CORPUSCULAR HGB CONC 35 g/dL (33-37); MEAN CORPUSCULAR VOLUME 86.1 fL (80-94); MONOCYTES # (AUTO) 0.7 K/uL (0.8-1.0); NEUTROPHILS # (AUTO) 4.9 K/uL (1.8-7.7); NEUTROPHILS % (AUTO) 64.8 % (42.2-75.2); PLATELET COUNT (AUTO) 194 K/uL (140-450); RED BLOOD CELL COUNT(AUTO) 3.15 MIL/uL (4.20-5.40); RED CELL DISTRIBUTION WIDTH 13.4 % (11.6-13.7); WHITE BLOOD COUNT (AUTO) 7.5 K/uL (4.8-10.8)
--- NOTE | 2019-12-24 12:30 | NUR ---
DR. NAPOLES AT BEDSIDE REVIEWING PLAN OF CARE WITH PATIENT. WILL CONTINUE TO MONITOR.
--- NOTE | 2019-12-24 15:44 | NUR ---
DISCHARGE INSTRUCTIONS PROVIDED TO PATIENT IN PREFERRED LANGUAGE OF BERMUDIAN, PATIENT PREFERRED TO TRANSLATE INSTEAD OF USING TRANSLATION PHONE. INSTRUCTIONS ON FOLLOW-UP WITH DR. PEREZ S/P DNC AND MANAGEMENT. PATIENT/FAMILY VERBALIZED COMPLETE UNDERSTANDING. IV SITE REMOVED WITH MINIMAL BLOOD AND LUMEN COMPLETELY INTACT. ID BANDS REMOVED. PATIENT TO GET DRESSED AND THEN READY TO BE DISCHARGED HOME VIA PRIVATE VEHICLE. WILL CONTINUE TO MONITOR.
--- NOTE | 2019-12-24 15:55 | NUR ---
PATIENT ALL DRESSED. ESCORTED PATIENT DOWN TO LOBBY VIA STEADY AMBULATION. PATIENT DISCHARGED AT THIS TIME IN STABLE CONDITION.
== END 2019-12-24 15:55 | disposition home or self-care (01) | DRG 544 ==
LOC: MED 18:18 → MTU 21:54 → MED 22:07 → MMU 12-24 00:17
PROVIDERS: ADMIT General Practice; ATTEND General Practice
PROC: 10D17ZZ Extraction of Products of Conception, Retained, Via Natural or Artificial Opening (ICD-10-PCS; principal; 2019-12-23 21:45)
PROC: 30233N1 Transfusion of Nonautologous Red Blood Cells into Peripheral Vein, Percutaneous Approach (ICD-10-PCS; 2019-12-24)
DX: O03.1 Delayed or excessive hemorrhage following incomplete spontaneous abortion (principal); I95.9 Hypotension, unspecified; D62 Acute posthemorrhagic anemia; E44.1 Mild protein-calorie malnutrition; E86.0 Dehydration; O03.38 Urinary tract infection following incomplete spontaneous abortion; Z90.49 Acquired absence of other specified parts of digestive tract
CPT/HCPCS: 36415; 71045; 76815; 80048; 80053; 80305; 81001; 83036; 83735; 83880; 84100; 84443; 84702; 85018; 85025; 85610; 85730; 86886; 86900; 86901; 86920; 87081; 87086; 96360; 99291; J0330; J0696; J1885; J2250; J2270; J2405; J2704; J3010; J3490; J7030; J7060; P9016; Q0092

== ENCOUNTER 2020-07-04 16:15 | Emergency (ER) | payer MEDICAID ==
[~2020-07-04] VITALS: Ht 163.8 cm; Wt 78.5 kg
[2020-07-04 16:27] VITALS: BP 110/60
--- NOTE | 2020-07-04 16:31 | NUR ---
Patient ambulated to bed 8. RN evaluating the patient at bedside.
--- NOTE | 2020-07-04 16:47 | NUR ---
ABRAM Marie is evaluating the patient at bedside.
[2020-07-04] MEDS ORDERED: DOPPLER MC ONE (16:50)
--- NOTE | 2020-07-04 16:56 | NUR ---
39 YEAR OLD FEMALE COMPLAINS OF DIZZINESS, CRAMPING, AND NAUSEA IN THE MORNING. PT STATES SHE IS 15 WEEKS , HEART RATE 178 BY DOPPLER. PT AOX4, BREATHING EVEN AND UNLABORED, SKIN WARM AND DRY. BED IN LOWEST POSITION, LOCKED, BED RAIL UPX1. PA MICHAEL AT BEDSIDE. PMH - DENIES ALLERGIES - NKA
[2020-07-04 17:11] LABS: BASOPHILS # (AUTO) 0.1 K/uL (0.00-0.22); BASOPHILS % (AUTO) 0.9 % (0.0-2.0); EOSINOPHILS # (AUTO) 0.1 K/uL (0-0.4); EOSINOPHILS % (AUTO) 1.4 % (0.0-4.0); HEMATOCRIT 38.6 % (36-48); HEMOGLOBIN 12.7 g/dL (12.0-16.0); LYMPHOCYTES # (AUTO) 1.6 K/uL (2.5-16.5); LYMPHOCYTES % (AUTO) 17.9 % (20.5-51.1); MEAN CORPUSCULAR HEMOGLOBIN 29 pg (27-31); MEAN CORPUSCULAR HGB CONC 33 g/dL (33-37); MEAN CORPUSCULAR VOLUME 87.8 fL (80-94); MONOCYTES # (AUTO) 0.8 K/uL (0.8-1.0); NEUTROPHILS # (AUTO) 6.2 K/uL (1.8-7.7); NEUTROPHILS % (AUTO) 70.8 % (42.2-75.2); PLATELET COUNT (AUTO) 264 K/uL (140-450); RED BLOOD CELL COUNT(AUTO) 4.39 MIL/uL (4.20-5.40); RED CELL DISTRIBUTION WIDTH 14.6 % (11.6-13.7); WHITE BLOOD COUNT (AUTO) 8.8 K/uL (4.8-10.8)
[2020-07-04 17:40] LABS: ALBUMIN 3.1 g/dL (3.4-5.0); ANION GAP 18.4 (8-16); CARBON DIOXIDE 21.4 mmol/L (21-32); CREATININE 0.4 mg/dL (0.6-1.3); POTASSIUM 3.8 mmol/L (3.5-5.1); TOTAL BILIRUBIN 0.2 mg/dL (0.0-1.0)
--- NOTE | 2020-07-04 17:53 | NUR ---
PT ALERT AND AWAKE, BREATHING EVEN AND UNLABORED. NO DISTRESS NOTED. WILL CONTINUE TO MONITOR.
[2020-07-04 18:59] VITALS: BP 112/64
== END 2020-07-04 18:59 | disposition home or self-care (01) ==
LOC: MED 16:15
DX: O21.8 Other vomiting complicating pregnancy (principal); O26.892 Other specified pregnancy related conditions, second trimester; R42 Dizziness and giddiness; Z3A.15 15 weeks gestation of pregnancy
CPT/HCPCS: 36415; 80053; 81002; 85025; 99284